=== PATIENT | female | born 1975 | race Caucasian/White ===

== ENCOUNTER 2020-09-08 04:39 | Day surgery (SDC) | payer BC, OTHER ==
[2020-09-07 16:58] VITALS: BMI 34.0
[~2020-09-08 04:39] MED LIST: ceFAZolin SODIUM 1 GM VIAL IVPB ONE
[2020-09-08] MEDS ORDERED: MIDAZOLAM HCL 2 MG/2 ML SINGLE DOSE VIAL ONE (12:19)
[2020-09-08] MEDS ORDERED: ROCURONIUM BROMIDE 100 MG/10 ML VIAL ONE (12:20)
[2020-09-08] MEDS ORDERED: ONDANSETRON 4 MG/2 ML VIAL IVPUSH PRN (12:56)
[2020-09-08] MEDS ORDERED: IBUPROFEN 600 MG TABLET (FP) PO PRN (12:56)
[2020-09-08] MEDS ORDERED: oxyCODONE HCL 5 MG TABLET PO PRN (12:56)
[2020-09-08] MEDS ORDERED: IBUPROFEN 800 MG/8 ML IJ IVPB PRN (12:56)
[2020-09-08] MEDS ORDERED: ELECTROLYTE-148 SOLN 1,000 ML IV SCH (13:00)
[2020-09-08] MEDS ORDERED: BUPIVACAINE HCL/PF 0.5% (5MG/ML) 10 ML VIAL IJ ONE (13:44)
[2020-09-08] MEDS ORDERED: GLYCOPYRROLATE 0.2 MG/1 ML VIAL ONE (14:08)
[2020-09-08] MEDS ORDERED: NEOSTIGMINE METHYLSULFATE 0.5 MG/ML - 10 ML MDV ONE (14:08)
[2020-09-08] MEDS ORDERED: BUPIVACAINE HCL/PF 0.5% (5MG/ML) 10 ML VIAL ONE (14:10)
[2020-09-08] MEDS ORDERED: ALBUTEROL SO4 HFA INHALER IH ONE (14:14)
[2020-09-08] MEDS ORDERED: PROPOFOL 20 ML ONE (14:17)
[2020-09-08] MEDS ORDERED: PROMETHAZINE HCL 25 MG/1 ML VIAL IVPB PRN (14:37)
[2020-09-08] MEDS ORDERED: LACTATED RINGERS SOLUTION 1,000 ML IV SCH (14:45)
[2020-09-08] MEDS ORDERED: ONDANSETRON 4 MG/2 ML VIAL ONE (14:50)
[2020-09-08 17:00] VITALS: TEMP 98
[2020-09-08] MEDS ORDERED: IBUPROFEN 600 MG TABLET (FP) PO ONE (17:54)
[2020-09-08 18:31] VITALS: BP 125/68; PULSE 88
== END 2020-09-08 18:25 | disposition home or self-care (01) ==
LOC: JASU-SURG 04:39
PROVIDERS: ATTEND Obstetrics & Gynecology
PROC: 0UT74ZZ Resection of Bilateral Fallopian Tubes, Percutaneous Endoscopic Approach (ICD-10-PCS; principal; 2020-09-08 12:00)
DX: Z30.2 Encounter for sterilization (principal)
CPT/HCPCS: 81025; 88302-TC; 94760